=== PATIENT | female | born 1990 | race Caucasian/White ===

== ENCOUNTER 2017-09-14 11:04 | Emergency (ER) | payer OTHER, SELFPAY ==
[2017-09-14 11:05] VITALS: BP 133/91; PULSE 105; RESP 16; TEMP 36.6; O2SAT 98; BMI 24.7
--- NOTE | 2017-09-14 11:22 | ED.VISSUMM ---
- ER Visit Summary Date of Service: 09/14/17 Chief Complaint: [Right facial pain] History of Present Illness: The patient is a 26 F [presents to the emergency department with pain to the right side of her face that started around 5 AM today. Patient states that she is been diagnosed with trigeminal neuralgia. Patient has frequent exacerbations of 1-2 per month however typically not as severe as today's. Patient has not had one this severe in many months. Patient states she has had several CAT scans of her brain. Patient denies any trauma to her face. She denies any fever or recent illness. Patient used to be on Tegretol but she did not like the way that it made her feel so she stopped taking it. Patient also takes tramadol chronically for chronic back pain issues. Patient has had prior spinal fusion from T5-L3 due to scoliosis. Patient used to be in pain management but no longer is. Her primary care physician seems to be managing her trigeminal neuralgia. This flareup is typical of her flareups only more severe.] Her pain is to the right hoahaoism and right forehead and right hernando-orbital area. Physical Examination: [HEENT-PERRLA, EOMI. Cranial nerves II through XII grossly intact. TMs clear. Mucous membranes moist. No adenopathy. Cardiovascular-regular rate and rhythm without murmur or ectopy Lungs-clear to auscultation, chest wall stable without crepitus or subcu emphysema Abdomen-normoactive bowel sounds, soft, nontender, no rebound or rigidity, no peritoneal signs. Extremities-intact ?4, normal range of motion, normal pulses, atraumatic] Test Results: [None indicated] Emergency Department Course and Treatment: [Patient was given 1 dose of OxyIR in the emergency department.] Treatment Plan: [Patient will be given a prescription for 20 Percocet for severe pain. Patient will be given referral to neurology.] Disposition: [Discharged to home in stable condition. Patient advised to return if condition should worsen in any way.] Impression: [Acute exacerbation of trigeminal neuralgia] This note was generated with [employer] dictation software. It may contain incorrect words, spelling, and punctuation that were not noted in review of the chart prior to signing ED Disposition - Plan for ED Patient: Chief Complaint: Other, Pain/Inj Referrals: [facility] Doctor,Out of [Primary Care Provider] -
--- NOTE | 2017-09-14 11:26 | ED.DEP ---
ED Disposition - Plan for ED Patient: Chief Complaint: Other, Pain/Inj Instructions: ED Neuralgia Trigeminal Prescriptions: Oxycodone HCl/Acetaminophen [Percocet 5/325] 1 tab PO Q6H PRN PRN 5 Days #20 tab PRN Reason: Pain Referrals: [facility] Doctor,Out of [Primary Care Provider] - Samir Machuca MD [STAFF PHYSICIAN] - 5-7 Days
[2017-09-14 12:02] VITALS: PULSE 84; RESP 16
--- NOTE | 2017-09-14 12:03 | ED.RN ---
THIS NURSE REVIEWED D/C INSTRUCTIONS WITH PT. PT VERBALIZED UNDERSTANDING OF INSTRUCTIONS. PT DOES NOT HAVE A RIDE HOME. DECLINED OXYIR. DR PADRON NOTIFIED. PT DENIES FURTHER NEEDS OR QUESTIONS AT THIS TIME. PT AMBULATES FROM ROOM ON OWN WITHOUT ASSISTANCE FROM STAFF
== END 2017-09-14 12:04 | disposition home or self-care (01) ==
LOC: ED 11:37
PROVIDERS: Emergency Provider Emergency Medicine
DX: G50.0 Trigeminal neuralgia (principal); M54.9 Dorsalgia, unspecified; G89.29 Other chronic pain; Z72.0 Tobacco use; Z98.1 Arthrodesis status; Z79.899 Other long term (current) drug therapy
CPT/HCPCS: 99282

== ENCOUNTER 2017-11-22 16:38 | Emergency (ER) | payer OTHER, SELFPAY ==
[2017-11-22 16:40] VITALS: BP 131/81; PULSE 97; RESP 15; TEMP 36.7; O2SAT 100; BMI 26.9
--- NOTE | 2017-11-22 17:01 | ED.VISSUMM ---
- ER Visit Summary Date of Service: 11/22/17 Chief Complaint: Trigeminal neuralgia History of Present Illness: The patient is a 27 F who has a history of trigeminal neuralgia. She states this is been diagnosed by the ER and by her primary care physician. She was previously on Tegretol but it did not seem to be helping and she did not like the way the medication made her feel. She currently is on tramadol. She has been referred to neurology but does not have an appointment until December. She states that she began to have a flareup today. She complains of right-sided facial pain. She denies fevers chest pain shortness of breath nausea vomiting or diarrhea. He also has a history of chronic back pain and was previously known to pain management but no longer follows with them. Physical Examination: Afebrile vitals are stable Moist mucous membranes Heart regular rate and rhythm Lungs are clear No rash Pupils are equally round reactive to light Test Results: Not indicated Emergency Department Course and Treatment: Patient was given 1 dose of oxycodone here. Given that she has previously been in pain management and receives tramadol from her primary care physician and this is chronic pain I explained it would not be appropriate for me to prescribe controlled substances or opioids from the emergency department and that as she is already receiving opioids these prescriptions should come from a single provider. After I discussed this the patient states that she actually did speak to her primary care physician who did not want to prescribe her any further opioids at this time. Patient was given a prescription for gabapentin for neuropathic pain. She was advised to follow-up as an outpatient and keep her scheduled appointment with neurology. Treatment Plan: [] Disposition: Discharge Impression: Trigeminal neuralgia This note was generated with [employer] dictation software. It may contain incorrect words, spelling, and punctuation that were not noted in review of the chart prior to signing ED Disposition - Plan for ED Patient: Chief Complaint: Other, Pain/Inj Referrals: [facility] Doctor,Out of [Primary Care Provider] -
--- NOTE | 2017-11-22 17:04 | ED.DCSUM_ITS ---
- ER Visit Summary Date of Service: 11/22/17 Chief Complaint: Trigeminal neuralgia History of Present Illness: The patient is a 27 F who has a history of trigeminal neuralgia. She states this is been diagnosed by the ER and by her primary care physician. She was previously on Tegretol but it did not seem to be helping and she did not like the way the medication made her feel. She currently is on tramadol. She has been referred to neurology but does not have an appointment until December. She states that she began to have a flareup today. She complains of right-sided facial pain. She denies fevers chest pain shortness of breath nausea vomiting or diarrhea. He also has a history of chronic back pain and was previously known to pain management but no longer follows with them. Physical Examination: Afebrile vitals are stable Moist mucous membranes Heart regular rate and rhythm Lungs are clear No rash Pupils are equally round reactive to light Test Results: Not indicated Emergency Department Course and Treatment: Patient was given 1 dose of oxycodone here. Given that she has previously been in pain management and receives tramadol from her primary care physician and this is chronic pain I explained it would not be appropriate for me to prescribe controlled substances or opioids from the emergency department and that as she is already receiving opioids these prescriptions should come from a single provider. After I discussed this the patient states that she actually did speak to her primary care physician who did not want to prescribe her any further opioids at this time. Patient was given a prescription for gabapentin for neuropathic pain. She was advised to follow-up as an outpatient and keep her scheduled appointment with neurology. Treatment Plan: [] Disposition: Discharge Impression: Trigeminal neuralgia This note was generated with [employer] dictation software. It may contain incorrect words, spelling, and punctuation that were not noted in review of the chart prior to signing ED Disposition - Plan for ED Patient: Chief Complaint: Other, Pain/Inj Referrals: [facility] Doctor,Out of [Primary Care Provider] -
--- NOTE | 2017-11-22 17:05 | DCINST.ED_ITS ---
ED Disposition - Plan for ED Patient: Chief Complaint: Other, Pain/Inj Instructions: ED Neuralgia Trigeminal Prescriptions: Gabapentin [Neurontin] 300 mg PO DAILY #14 cap Referrals: [facility] Doctor,Out of [Primary Care Provider] -
[2017-11-22] MEDS: oxyCODONE 5 MG Tablet PO (17:12)
== END 2017-11-22 17:26 | disposition home or self-care (01) ==
LOC: ED 17:21
PROVIDERS: Emergency Provider Emergency Medicine
DX: G50.0 Trigeminal neuralgia (principal); M54.9 Dorsalgia, unspecified; G89.29 Other chronic pain; Z72.0 Tobacco use; Z79.899 Other long term (current) drug therapy
CPT/HCPCS: 99282

== ENCOUNTER → 2018-05-15 15:29 | Outpatient (CLI) | payer OTHER, SELFPAY ==
[2018-05-15 15:31] LABS: Mucous, Urine 0 SEEN /hpf (<or=2+); Red Blood Cells-Urine 0 SEEN /hpf (0-5)
[2018-05-15 15:50] LABS: Color, Urine Yellow (Yellow); Glucose, Dipstick Normal (Normal); Ketone-Dipstick Negative (Negative); Leukocyte Esterase-Dipstick 25 /ul (Negative); Nitrite-Dipstick Positive (Negative); Occult Blood-Urine Negative /ul (Negative); Protein-Dipstick Negative (Negative); Specific Gravity, Urine 1.005 (1.002-1.030); Urine Clarity Sl. Cloudy (Clear); Urine Urobilinogen 4 mg/dl (Normal)
[2018-05-15 15:52] LABS: Urine Bilirubin Dipstick 3 mg/dL (Negative)
[2018-05-15 16:05] LABS: Bacteria RARE /hpf (None Seen); Squamous Epithelial Cells - UA 0-5 SEEN /hpf (5-10); White Blood Cells 0-5 SEEN /hpf (0-5)
== END ==
PROVIDERS: Visit Provider Physician Assistant
DX: R30.0 Dysuria (principal)
CPT/HCPCS: 81001

== ENCOUNTER → 2018-07-02 08:19 | Outpatient (CLI) | payer OTHER, SELFPAY ==
[2018-07-02 08:22] LABS: Mucous, Urine 0 SEEN /hpf (<or=2+)
[2018-07-02 08:34] LABS: Color, Urine Yellow (Yellow); Glucose, Dipstick Normal (Normal); Ketone-Dipstick 5 mg/dl (Negative); Leukocyte Esterase-Dipstick 500 /ul (Negative); Nitrite-Dipstick Negative (Negative); Occult Blood-Urine 10 /ul (Negative); Protein-Dipstick 15 mg/dl (Negative); Specific Gravity, Urine 1.025 (1.002-1.030); Urine Bilirubin Dipstick Negative (Negative); Urine Clarity Cloudy (Clear); Urine Urobilinogen Normal (Normal)
[2018-07-02 08:41] LABS: Bacteria 1+ /hpf (None Seen); Red Blood Cells-Urine 0-5 SEEN /hpf (0-5); Squamous Epithelial Cells - UA 0-5 SEEN /hpf (5-10); White Blood Cells 25-50 SEEN /hpf (0-5)
== END ==
PROVIDERS: Visit Provider Physician Assistant
DX: N39.0 Urinary tract infection, site not specified (principal)
CPT/HCPCS: 81001; 87086; 87088; 87186

== ENCOUNTER → 2018-08-03 08:11 | Outpatient (CLI) | payer BC, SELFPAY ==
--- NOTE | 2018-08-03 08:23 | RAD_ITS ---
STUDY: X-RAY - RIGHT KNEE REASON FOR EXAM: Female, 27 years old. Continued pain and swelling following a recent fall. TECHNIQUE: 4 view(s) of the knee. COMPARISON: None. FINDINGS: Normal visualized distal femur. Normal visualized proximal tibia and fibula. Normal proximal tibiofibular articulation. Normal medial femorotibial compartment. Normal lateral femorotibial compartment. Normal patellofemoral articulation. Mild soft tissue swelling. RAD/Knee 4 or More Views IMPRESSION: Mild soft tissue swelling. Electronically Signed: Luis Angel Bragg MD at 11:30 EST , Service support ,
== END ==
DX: M25.561 Pain in right knee (principal)
CPT/HCPCS: 73564

== ENCOUNTER → 2020-02-20 16:29 | Outpatient (CLI) | payer OTHER, SELFPAY ==
[2019-07-04 16:29] VITALS: BMI 26.9
--- NOTE | 2020-02-20 16:41 | EKG12_ITS ---
Test Reason : TACHY/CP Blood Pressure : / mmHG Vent. Rate : 078 BPM Atrial Rate : 078 BPM P-R Int : 138 ms QRS Dur : 084 ms QT Int : 386 ms P-R-T Axes : 038 081 031 degrees QTc Int : 440 ms Normal sinus rhythm Normal ECG Confirmed by STEPHANIE SINGLETARY, GIAN ([id number]), food expeditor RUTHANN SAGE ([id number]) on 02/24/2020 9:31:39 AM Referred By: Kaleb Dominguez Confirmed By:JADYN BROWN MD
== END ==
PROVIDERS: Referring Provider Surgery; Visit Provider Surgery
DX: R07.9 Chest pain, unspecified (principal); R00.0 Tachycardia, unspecified
CPT/HCPCS: 93005

== ENCOUNTER → 2020-09-16 16:35 | Outpatient (CLI) | payer OTHER, SELFPAY ==
[2020-09-16 15:52] VITALS: BMI 28.3
[2020-09-22 14:14] LABS: HPV Reflexed? NOT INDICATED
== END ==
PROVIDERS: Referring Provider Nurse Practitioner Women's Health; Visit Provider Nurse Practitioner Women's Health
DX: Z01.419 Encounter for gynecological examination (general) (routine) without abnormal findings (principal)
CPT/HCPCS: 88175; G0145

== ENCOUNTER → 2021-04-14 08:59 | Outpatient (CLI) | payer BC, SELFPAY | PROVIDERS: Visit Provider Otolaryngology | DX: Z03.818 Encounter for observation for suspected exposure to other biological agents ruled out (principal) | CPT/HCPCS: 87635; U0005; U0003 ==

== ENCOUNTER → 2021-04-15 16:37 | Outpatient (CLI) | payer BC, SELFPAY | PROVIDERS: Referring Provider Otolaryngology; Visit Provider Otolaryngology | DX: U07.1 COVID-19 (principal) | CPT/HCPCS: 87635; U0005; U0003 ==

== ENCOUNTER 2021-10-04 07:40 | Outpatient (CLI) | payer BC, SELFPAY ==
[2021-10-08 13:48] LABS: HPV Reflexed? YES, CHARGE PATIENT
== END 2021-10-04 23:59 | disposition home or self-care (01) ==
LOC: LABSPEC 07:41
PROVIDERS: Visit Provider Obstetrics & Gynecology
DX: Z12.4 Encounter for screening for malignant neoplasm of cervix (principal)
CPT/HCPCS: 87624; 88175; G0145

== ENCOUNTER 2021-10-05 14:15 | Outpatient (CLI) | payer BC, SELFPAY ==
--- NOTE | 2021-10-05 14:16 | US_ITS ---
STUDY: ULTRASOUND OF THE FEMALE PELVIS - COMPLETE REASON FOR EXAM: Female, 31 years old. Pelvic pain LMP: 09/12/2021. TECHNIQUE: Transabdominal and Transvaginal TECHNICAL QUALITY: Adequate. COMPARISON: None. FINDINGS: The uterus is anteverted and is in a midline position. The uterus measures 8.2 cm x 4.7 cm x 4 cm. There is a Nabothian cyst of the cervix. The endometrium measures 8.2 mm in thickness, and is . There is no demonstrated endometrial mass. There is no demonstrated myometrial mass. I.U.D. - The patient does not have an I.U.D. The right ovary is visualized. The right ovary measures 1.3 cm x 1.2 cm x 1.1 cm. There is no right ovarian cyst or ovarian mass. There is no visualized right adnexal mass or complex lesion. There is normal arterial and normal venous vascularity. The left ovary is visualized. The left ovary measures 5.1 cm by 4.6 cm x 3.7 cm. There is a 3.7 cm x 3.9 cm x 2.6 cm left ovarian cyst with a small septation. There is no visualized left adnexal mass or complex lesion. There is normal arterial and normal venous vascularity. There is no fluid in the cul-de-sac. The pre void volume of the bladder was 495 ml. US/Transvaginal Non- IMPRESSION: 3.7 cm x 3.9 cm x 2.6 cm left ovarian cyst with septation. Electronically Signed: Luis Angel Bragg MD at 15:49 EDT ,
--- NOTE | 2021-10-05 14:16 | US_ITS ---
STUDY: ULTRASOUND OF THE FEMALE PELVIS - COMPLETE REASON FOR EXAM: Female, 31 years old. Pelvic pain LMP: 09/12/2021. TECHNIQUE: Transabdominal and Transvaginal TECHNICAL QUALITY: Adequate. COMPARISON: None. FINDINGS: The uterus is anteverted and is in a midline position. The uterus measures 8.2 cm x 4.7 cm x 4 cm. There is a Nabothian cyst of the cervix. The endometrium measures 8.2 mm in thickness, and is . There is no demonstrated endometrial mass. There is no demonstrated myometrial mass. I.U.D. - The patient does not have an I.U.D. The right ovary is visualized. The right ovary measures 1.3 cm x 1.2 cm x 1.1 cm. There is no right ovarian cyst or ovarian mass. There is no visualized right adnexal mass or complex lesion. There is normal arterial and normal venous vascularity. The left ovary is visualized. The left ovary measures 5.1 cm by 4.6 cm x 3.7 cm. There is a 3.7 cm x 3.9 cm x 2.6 cm left ovarian cyst with a small septation. There is no visualized left adnexal mass or complex lesion. There is normal arterial and normal venous vascularity. There is no fluid in the cul-de-sac. The pre void volume of the bladder was 495 ml. US/Pelvic (Non ) IMPRESSION: 3.7 cm x 3.9 cm x 2.6 cm left ovarian cyst with septation. Electronically Signed: Luis Angel Bragg MD at 15:49 EDT ,
== END 2021-10-05 23:59 | disposition home or self-care (01) ==
LOC: OPUS 14:15
PROVIDERS: Referring Provider Obstetrics & Gynecology; Visit Provider Obstetrics & Gynecology
DX: R10.2 Pelvic and perineal pain (principal)
CPT/HCPCS: 76830; 76856

== ENCOUNTER → 2021-11-11 | Outpatient (CLI) | payer BC, SELFPAY ==
--- NOTE | 2021-11-11 | IMM_PTH ---
PATIENT: MAKENZIE WILKINS LOC: [facility] U#:[id number] AGE/SX: 31/F ROOM: RE11/11/[address]: Dr. Danae Limon DO : 1990 BED: DIS: 11/11/2021 SPEC #: [id number] RECD: 11/15/21 13:08 STATUS: GRACY REZuri #: [id number] ROHAN: 11/11/21 00:[address]: Danae Limon DEPT: IMMUNOHISTOCHEMISTRY RECD BY: Adela Saenz ENTERED: 11/15/21 13:09 SP TYPE: IMMUNO OTHR DR: Estrellita Primary Care Phys Tissues: A - Uterine cervix, NOS Procedures: p16 (initial) KI-67 (add) PHYSICIAN & INSTITUTION [place] [phone] SPECIMEN INFORMATION: Tissue Source: A ? Cervix, 12 o?clock Clinical Info: SIL Specimen Number: [id number] CPT code: 75191, 75458 METHODOLOGY: Deparaffinized sections of prefer/formalin-fixed tissue or PAP/DQ stained slides are incubated with monoclonal/polyclonal antibodies/oligonucleotide probes. Localization is made via biotin free immunoperoxidase method. Appropriate controls are performed and reacted as expected. Results on target cell population are indicated in the following table: RESULTS: ANTIBODY / CLONE RESULT Block A P16 (E6H4) positive, focal patchy staining Ki-67 (30-9) positive, low These tests were developed and their performance characteristics determined by [facility]. They may not have been cleared or approved by the U.S. Food and Drug Administration. The FDA has determined that such clearance or approval is not necessary. The above immunohistochemical/dualISH markers are ordered and reviewed by the Pathologist. INTERPRETATION: A. Cervix at 12 o?clock, biopsy: Focal mild squamous dysplasia. SJ:ama 11/15/2021
--- NOTE | 2021-11-11 14:00 | CER_PTH ---
PATIENT: MAKENZIE WILKINS LOC: [facility] U#:[id number] AGE/SX: 31/F ROOM: RE11/11/[address]: Dr. Danae Limon DO : 1990 BED: DIS: 11/11/2021 SPEC #: [id number] RECD: 11/11/21 15:11 STATUS: GRACY KEELEY #: [id number] ROHAN: 11/11/21 14:[address]: Danae Limon DEPT: SURGICAL PATHOLOGY RECD BY: Lizeth Roach ENTERED: 11/12/21 08:27 SP TYPE: CERV OTHR DR: No Primary Care Phys Tissues: A - Uterine cervix, NOS B - Endocervical Procedures: Surgery Specimen Level IV HEADER OPERATION: Colposcopy PRE-OP DIAGNOSIS: LGSIL TISSUE SUBMITTED: A ? 12 o?clock, B - ECC MICROSCOPIC DIAGNOSIS A. 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 Acute and chronic inflammation and squamous metaplasia. See comment. B. Endocervical curettings: Scant fragments of benign endocervical epithelium, negative for dysplasia. ALVARO:ama 11/15/2021 COMMENT A. Immunohistochemistry ([id number]) for surrogate HPV marker (p16) supports the above diagnosis. MICROSCOPIC DESCRIPTION Slides are reviewed. GROSS DESCRIPTION A - Received in fixative is one container labeled with the patient's name and designated 12 o'clock. The specimen consists of one irregular fragment of light milligan soft tissue that measures 0.3 x 0.2 x 0.1 cm. The specimen is totally submitted in one cassette. B - Received in fixative is one container labeled with the patient's name and designated ECC. The specimen consists of a scant amount of soft tissue. The specimen is totally submitted for cell block preparation. / ALVARO:ama 11/12/2021 TC:5 CPT: 99746 x2
== END | disposition home or self-care (01) ==
LOC: LABSPEC 15:23
PROVIDERS: Referring Provider Obstetrics & Gynecology; Visit Provider Obstetrics & Gynecology
DX: R87.612 Low grade squamous intraepithelial lesion on cytologic smear of cervix (LGSIL) (principal)
CPT/HCPCS: 88305; 88341; 88342

== ENCOUNTER → 2022-10-19 | Outpatient (CLI) | payer BC, SELFPAY ==
[2022-10-27 17:07] LABS: HPV APTIMA, High Risk Positive (Negative)
== END | disposition home or self-care (01) ==
LOC: LABSPEC 16:21
PROVIDERS: Referring Provider Obstetrics & Gynecology; Visit Provider Obstetrics & Gynecology
DX: Z12.4 Encounter for screening for malignant neoplasm of cervix (principal)
CPT/HCPCS: 87624; 88175; G0145

== ENCOUNTER → 2022-11-24 | Outpatient (CLI) | payer BC, SELFPAY ==
--- NOTE | 2022-11-24 | CER_PTH ---
PATIENT: MAKENZIE WILKINS LOC: [facility] U#:[id number] AGE/SX: 32/F ROOM: RE11/24/[address]: Dr. Danae Limon DO : 1990 BED: DIS: 11/24/2022 SPEC #: [id number] RECD: 11/24/22 13:32 STATUS: GRACY KEELEY #: [id number] ROHAN: 11/24/22 00:[address]: Danae Limon DEPT: SURGICAL PATHOLOGY RECD BY: Qasim Douglas ENTERED: 11/25/22 05:53 SP TYPE: CERV OTHR DR: No Primary Care Phys Tissues: A - Uterine cervix, NOS B - Endocervical Procedures: Surgery Specimen Level IV HEADER OPERATION: Colposcopy PRE-OP DIAGNOSIS: LGSIL TISSUE SUBMITTED: A ? Cervix 11 o?clock, B ? Endocervical curettings MICROSCOPIC DIAGNOSIS A. Cervix at 11 o?clock, biopsy: Focal HPV change present. Mild chronic inflammation. See comment. B. Endocervix, curettings: Rare benign epithelial cells are present. AM:ama 11/25/2022 COMMENT A. Results from immunohistochemistry ([id number]) for surrogate HPV marker (p16) will be reported separately. Case has been reviewed in consultation with Dr. Schrader who concurs with the above diagnosis. IDC:ALVARO MICROSCOPIC DESCRIPTION Slides are reviewed. GROSS DESCRIPTION A - Received in fixative is one container labeled with the patient's name and designated 11 o'clock. The specimen consists of one irregular fragment of light milligan soft tissue that measures 0.5 x 0.3 x 0.2 cm. The specimen is totally submitted in one cassette. B - Received in fixative is one container labeled with the patient's name and designated endocervical curettings. The specimen consists of scan fragments of milligan soft tissue measuring in aggregate 0.3 x 0.2 x <0.1 cm. The specimen is totally submitted in one cassette. / SJ:ama 11/24/2022 TC:3 CPT: 78136 x2
--- NOTE | 2022-11-24 | IMM_PTH ---
PATIENT: MAKENZIE WILKINS LOC: [facility] U#:[id number] AGE/SX: 32/F ROOM: RE11/24/[address]: Dr. Danae Limon DO : 1990 BED: DIS: 11/24/2022 SPEC #: [id number] RECD: 11/25/22 13:44 STATUS: GRACY REZuri #: [id number] ROHAN: 11/24/22 00:[address]: Danae Limon DEPT: IMMUNOHISTOCHEMISTRY RECD BY: Adela Saenz ENTERED: 11/25/22 13:44 SP TYPE: IMMUNO OTHR DR: No Primary Care Phys Tissues: A - Uterine cervix, NOS Procedures: p16 (initial) KI-67 (add) PHYSICIAN & INSTITUTION [place] [phone] SPECIMEN INFORMATION: Tissue Source: A ? Cervix at 11 o?clock Clinical Info: LGSIL Specimen Number: [id number] CPT code: 22538, 07369 METHODOLOGY: Deparaffinized sections of prefer/formalin-fixed tissue or PAP/DQ stained slides are incubated with monoclonal/polyclonal antibodies/oligonucleotide probes. Localization is made via biotin free immunoperoxidase method. Appropriate controls are performed and reacted as expected. Results on target cell population are indicated in the following table: RESULTS: ANTIBODY / CLONE RESULT Block A P16 (E6H4) positive, focal patchy Ki-67 (30-9) negative These tests were developed and their performance characteristics determined by [facility]. They may not have been cleared or approved by the U.S. Food and Drug Administration. The FDA has determined that such clearance or approval is not necessary. The above immunohistochemical/dualISH markers are ordered and reviewed by the Pathologist. INTERPRETATION: A. Cervix at 11 o?clock, biopsy: Focal HPV change noted. AM:ama 11/29/2022
== END | disposition home or self-care (01) ==
PROVIDERS: Visit Provider Obstetrics & Gynecology
DX: R87.612 Low grade squamous intraepithelial lesion on cytologic smear of cervix (LGSIL) (principal)
CPT/HCPCS: 88305; 88341; 88342

== ENCOUNTER → 2023-10-31 | Outpatient (CLI) | payer BC, SELFPAY ==
[2023-11-06 15:08] LABS: HPV APTIMA, High Risk Positive (Negative)
== END | disposition home or self-care (01) ==
PROVIDERS: Referring Provider Obstetrics & Gynecology; Visit Provider Obstetrics & Gynecology
DX: Z12.4 Encounter for screening for malignant neoplasm of cervix (principal)
CPT/HCPCS: 87624; 88175; G0145

== ENCOUNTER → 2023-11-09 | Outpatient (CLI) | payer BC, SELFPAY ==
--- NOTE | 2023-11-09 15:48 | US_ITS ---
STUDY: ULTRASOUND OF THE FEMALE PELVIS - COMPLETE REASON FOR EXAM: Female, 33 years old. pelvic pain, possible endometriosis, h/o left cyst LMP: Unknown. TECHNIQUE: Transabdominal and Transvaginal TECHNICAL QUALITY: Adequate. COMPARISON: None. FINDINGS: The uterus is anteverted and is in a midline position. The uterus measures 7.5 x 3.8 x 3.0 cm. There is fluid in the endocervical canal. The endometrium measures 3 mm in thickness, and is hyperechoic. There is no demonstrated endometrial mass. There is no demonstrated myometrial mass. I.U.D. - The patient does not have an I.U.D. The right ovary is visualized. The right ovary measures 2.1 x 1.3 x 1.3 cm. There is no right ovarian cyst or ovarian mass. There is no visualized right adnexal mass or complex lesion. There is normal arterial and normal venous vascularity. The left ovary is visualized. The left ovary measures 2.0 x 1.9 x 0.9 cm. There is no left ovarian cyst or ovarian mass. There is no visualized left adnexal mass or complex lesion. There is normal arterial and normal venous vascularity. There is no fluid in the cul-de-sac. The pre void volume of the bladder was 383 ml. The post void volume of the bladder was ml. Polycystic ovary disease: No. US/Pelvic w/ Transvaginal IMPRESSION: Fluid in the endocervical canal. Electronically Signed: Antione Armenta MD at 13:42 EDT ,
== END | disposition home or self-care (01) ==
PROVIDERS: Referring Provider Obstetrics & Gynecology; Visit Provider Obstetrics & Gynecology
DX: R10.2 Pelvic and perineal pain (principal); Z80.41 Family history of malignant neoplasm of ovary; Z80.3 Family history of malignant neoplasm of breast
CPT/HCPCS: 36415; 76830; 76856

== ENCOUNTER → 2023-12-07 | Outpatient (CLI) | payer BC, SELFPAY ==
--- NOTE | 2023-12-07 | IMM_PTH ---
PATIENT: MAKENZIE WILKINS LOC: [facility] U#:[id number] AGE/SX: 33/F ROOM: RE12/07/[address]: Dr. Danae Limon DO : 1990 BED: DIS: 12/07/2023 SPEC #: [id number] RECD: 12/11/23 12:41 STATUS: GRACY REZuri #: [id number] ROHAN: 12/07/23 00:[address]: Danae Limon DEPT: IMMUNOHISTOCHEMISTRY RECD BY: Will Belcher ENTERED: 12/11/23 12:43 SP TYPE: IMMUNO OTHR DR: Estrellita Primary Care Phys Tissues: B - Uterine cervix, NOS Procedures: p16 (initial) KI-67 (add) PHYSICIAN & INSTITUTION [place] [phone] SPECIMEN INFORMATION: Tissue Source: B- 9o'clock biopsy Clinical Info: LGSIL, HPV+ Specimen Number: [id number] CPT code: 68277,66193 METHODOLOGY: Deparaffinized sections of prefer/formalin-fixed tissue or PAP/DQ stained slides are incubated with monoclonal/polyclonal antibodies/oligonucleotide probes. Localization is made via biotin free immunoperoxidase method. Appropriate controls are performed and reacted as expected. Results on target cell population are indicated in the following table: RESULTS: ANTIBODY / CLONE RESULT Block B P16 (E6H4) positive, rare cells with patchy staining Ki-67 (30-9) positive, low These tests were developed and their performance characteristics determined by [facility]. They may not have been cleared or approved by the U.S. Food and Drug Administration. The FDA has determined that such clearance or approval is not necessary. The above immunohistochemical/dualISH markers are ordered and reviewed by the Pathologist. INTERPRETATION: B. Cervix, 9o'clock, biopsy: Focal minimal changes suspicious for HPV cytopathic effects. ALVARO/ 12/12/2023
--- NOTE | 2023-12-07 | ECC_PTH ---
PATIENT: MAKENZIE WILKINS LOC: [facility] #:[id number] AGE/SX: 33/F ROOM: RE12/07/[address]: Dr. Danae Limon DO : 1990 BED: DIS: 12/07/2023 SPEC #: [id number] RECD: 12/07/23 18:29 STATUS: GRACY ALTMANZuri #: [id number] ROHAN: 12/07/23 00:[address]: Danae Limon DEPT: SURGICAL PATHOLOGY RECD BY: Marisol Pastor Tissues: A - Endocervical B - Uterine cervix, NOS Procedures: Surgery Specimen Level IV HEADER OPERATION: Colposcopy PRE-OP DIAGNOSIS: LGSIL, HPV+ TISSUE SUBMITTED: A- ECC, B- [facility] MICROSCOPIC DIAGNOSIS A. Endocervical curettings: Scant fragments of benign endocervical epithelium, negative for dysplasia. B. Cervix, [facility], biopsy: Focal minimal changes suspicious for HPV cytopathic effects. Acute and chronic inflammation. See comment. / 12/11/2023 COMMENT B. Immunohistochemistry ([id number]) for surrogate HPV marker (p16) supports the above diagnosis. MICROSCOPIC DESCRIPTION Slides are reviewed. GROSS DESCRIPTION A. Received in fixative is one container labeled with the patient's name and designated ECC. The specimen consists of a specimen received in fixative is a metallic brush with adherent minute fragments of milligan-red tissue and labeled with the patient's name and and designated per the requisition as ECC BRUSH. The material is dislodged from the brush and submitted for cell block preparation in one cassette. B. Received in fixative is one container labeled with the patient's name and designated 9 o'clock. The specimen consists of one irregular fragment of light milligan soft tissue that measures 0.3 x 0.3 x 0.1 cm. The specimen is totally submitted in one cassette. / 12/08/2023 TC:5 CPT:90701t6
== END | disposition home or self-care (01) ==
PROVIDERS: Referring Provider Obstetrics & Gynecology; Visit Provider Obstetrics & Gynecology
DX: R87.612 Low grade squamous intraepithelial lesion on cytologic smear of cervix (LGSIL) (principal); N72 Inflammatory disease of cervix uteri
CPT/HCPCS: 88305; 88341; 88342

== ENCOUNTER → 2024-06-07 | Outpatient (CLI) | payer BC, SELFPAY ==
[2024-06-19 15:07] LABS: HPV APTIMA, High Risk Positive (Negative)
== END | disposition home or self-care (01) ==
LOC: LABSPEC 15:39
PROVIDERS: Referring Provider Obstetrics & Gynecology; Visit Provider Obstetrics & Gynecology
DX: Z12.4 Encounter for screening for malignant neoplasm of cervix (principal)
CPT/HCPCS: 87624; 88175; G0145

== ENCOUNTER → 2024-07-17 | Outpatient (CLI) | payer OTHER, SELFPAY ==
--- NOTE | 2024-07-17 | IMM_PTH ---
PATIENT: MAKENZIE WILKINS LOC: [facility] U#:[id number] AGE/SX: 33/F ROOM: RE07/17/[address]: Dr. Danae Limon DO : 1990 BED: DIS: 07/17/2024 SPEC #: [id number] RECD: 07/19/24 13:53 STATUS: GRACY REQ #: [id number] ROHAN: 07/17/24 00:[address]: Danae Limon DEPT: IMMUNOHISTOCHEMISTRY RECD BY: Will Belcher ENTERED: 07/19/24 13:53 SP TYPE: IMMUNO OTHR DR: No Primary Care Phys Tissues: B - Uterine cervix, NOS Procedures: p16 (initial) KI-67 (add) PHYSICIAN & INSTITUTION [facility] [phone] SPECIMEN INFORMATION: Tissue Source: B- 12o'clock Clinical Info: LGSIL, HPV+ Specimen Number: [id number] CPT code: 66001,44173 METHODOLOGY: Deparaffinized sections of prefer/formalin-fixed tissue or PAP/DQ stained slides are incubated with monoclonal/polyclonal antibodies/oligonucleotide probes. Localization is made via biotin free immunoperoxidase method. Appropriate controls are performed and reacted as expected. Results on target cell population are indicated in the following table: RESULTS: ANTIBODY / CLONE RESULT Block B P16 (E6H4) negative Ki-67 (30-9) positive, basal layers only These tests were developed and their performance characteristics determined by [facility]. They may not have been cleared or approved by the [place] Food and Drug Administration. The FDA has determined that such clearance or approval is not necessary. The above immunohistochemical/dualISH markers are ordered and reviewed by the Pathologist. INTERPRETATION: Zev Cervix, 12o'clock: Negative for dysplasia. ALVARO. 07/22/2024
--- NOTE | 2024-07-17 14:30 | ECC_PTH ---
PATIENT: MAKENZIE WILKINS LOC: [facility] U#:[id number] AGE/SX: 33/F ROOM: RE07/17/[address]: Dr. Danae Limon DO : 1990 BED: DIS: 07/17/2024 SPEC #: [id number] RECD: 07/17/24 15:11 STATUS: GRACY MINA #: [id number] ROHAN: 07/17/24 14:[address]: Danae Limon DEPT: SURGICAL PATHOLOGY RECD BY: Marisol Pastor ENTERED: 07/18/24 08:08 SP TYPE: ECC LOKESH DR: No Primary Care Phys Tissues: A - Endocervical B - Uterine cervix, NOS Procedures: Surgery Specimen Level IV HEADER OPERATION: Colposcopy PRE-OP DIAGNOSIS: LGSIL, HPV+ TISSUE SUBMITTED: A- TOVA B- 12o'clock MICROSCOPIC DIAGNOSIS A. Endocervical curettings: Scant desquamated benign endocervical and squamous epithelial cells. Negative for dysplasia. B. Cervix, 12o'clock, biopsy: Chronic inflammation. Negative for dysplasia. See comment. 07/19/2024 COMMENT B. Immunohistochemistry ([id number]) for surrogate HPV marker (p16) supports the above diagnosis. MICROSCOPIC DESCRIPTION Slides are reviewed. GROSS DESCRIPTION A. Received in fixative is a metallic brush with adherent minute fragments of milligan-red tissue and labeled with the patient's name and and designated per the requisition as ECC BRUSH. The material is dislodged from the brush and submitted for cell block preparation in one cassette. B. Received in fixative is one container labeled with the patient's name and designated 12o'clock. The specimen consists of one irregular fragment of light milligan soft tissue that measures 0.4 x 0.3 x 0.1 cm. The specimen is totally submitted in one cassette. 07/18/2024 TC:3 CPT:77204e2
== END | disposition home or self-care (01) ==
LOC: LABSPEC 14:58
PROVIDERS: Referring Provider Obstetrics & Gynecology; Visit Provider Obstetrics & Gynecology
DX: R87.810 Cervical high risk human papillomavirus (HPV) DNA test positive (principal)
CPT/HCPCS: 88305; 88341; 88342

== ENCOUNTER → 2025-03-05 | Outpatient (CLI) | payer OTHER, SELFPAY ==
[2025-03-05 13:05] LABS: Barbiturate Urine NEGATIVE (< 200 ng/mL); Benzodiazepine Urine NEGATIVE (< 200 ng/mL); PCP Urine NEGATIVE (< 25 ng/mL); THC Urine PRESUMPTIVE POSITIVE (< 50 ng/mL)
[2025-03-07 05:07] LABS: Chlamydia By Nucleic Acid AMP Negative (Negative); Gonococcus By Nucleic Acid AMP Negative (Negative)
== END | disposition home or self-care (01) ==
LOC: LABSPEC 12:02
PROVIDERS: Visit Provider Advanced Practice Midwife
DX: O09.90 Supervision of high risk pregnancy, unspecified, unspecified trimester (principal); O99.320 Drug use complicating pregnancy, unspecified trimester; F12.91 Cannabis use, unspecified, in remission; Z3A.00 Weeks of gestation of pregnancy not specified
CPT/HCPCS: 80307; 87086; 87491; 87591

== ENCOUNTER → 2025-03-17 | Outpatient (CLI) | payer OTHER, SELFPAY ==
[2025-03-17 09:36] LABS: Hematocrit 40.3 % (37-47); Hemoglobin 14.2 g/dL (12.0-15.0); Immature Granulocytes Count 0.030 X10^3/uL (0.0-0.0); Mean Corp Hgb Conc 35.2 g/dL (32-36); Mean Corpuscular Volume 89.6 fL (81-99); Mean Platelet Vol. 9.9 fl (6.2-12.0); NRBC Flagged by Analyzer 0 % (0-5); Platelet Count 266 K/mm3 (150-450); RBC Distribution Width CV 12.6 % (11.6-14.6); RBC Distribution Width SD 41.1 fl (35.1-43.9); Red Blood Count 4.50 M/mm3 (4.2-5.4); White Blood Count 6.9 K/mm3 (4.4-11.0)
[2025-03-17 10:16] LABS: HIV Nonreactive (Nonreactive); Hepatitis B Surface Antigen Nonreactive (Nonreactive); Hepatitis C Antibody Nonreactive (Nonreactive); Syphilis Antibodies Nonreactive (Nonreactive)
== END | disposition home or self-care (01) ==
LOC: BWCLAB 08:36
PROVIDERS: Referring Provider Advanced Practice Midwife; Visit Provider Advanced Practice Midwife
DX: O09.90 Supervision of high risk pregnancy, unspecified, unspecified trimester (principal); Z3A.00 Weeks of gestation of pregnancy not specified
CPT/HCPCS: 36415; 85025; 86703; 86762; 86780; 86803; 86850; 86900; 86901; 87340